=== PATIENT | male | born 1945 | race Caucasian/White ===

== ENCOUNTER 2021-03-05 05:20 | Inpatient (IN) | payer OTHER ==
[~2021-03-05] VITALS: Ht 185.4 cm; Wt 95.2 kg
--- NOTE | 2021-03-05 06:38 | NUR ---
PT ARRIVED A FIRECT ADMIT AROUND 0545HRS. STAT CONSULT TO UROLOGY CALLED. NURSE PRACTITIONER ADULT NOTIFIED. PAIN AND NAUSEA MEDS ORDERED. PT RATES PAIN OF 10/10; ORN PAIN MEDS PROVIDED. UROLOGIST WITH PT. WILL ENDORSE TO AM RN TO COMPLETE ADMISSION.
[2021-03-05 07:01] VITALS: BP 149/77
[2021-03-05 08:01] VITALS: BP 148/81
--- NOTE | 2021-03-05 10:17 | NUR ---
ASSUMED PT CARE THIS AM. ADMISSION COMPLETED CHARTED. PATIENT HAD A FRIEND CATHETER PLACED THIS AM BY PHYSICIAN, DRAINING RED. PATIENT REPORTS PAIN RELIEF WITH FRIEND CATHETER PLACED. PATIENT A&OX4 AND ABLE TO MAKE NEEDS KNOWN. PATIENT ON ROOM AIR. DIET ADVANCED PER PHYSICIAN. FALL PRECAUTIONS ARE IN PLACE, CALL LIGHT WITHIN REACH.
[2021-03-05 15:08] LABS: HEMATOCRIT 29.6 % (42.0-52.0); HEMOGLOBIN 10.1 gm/dL (14.0-18.0); MCV 91.2 fL (80.0-100.0); RBC 3.24 mil/uL (4.50-6.00); RDW 13.2 % (10.5-14.5); WBC 21.2 thou/uL (4.0-11.0)
[2021-03-05 15:49] LABS: ALBUMIN 2.8 g/dL (3.4-5.0); CALCIUM 7.4 mg/dL (8.5-10.1); CREATININE 9.7 mg/dL (0.7-1.3); POTASSIUM 5.4 mmol/L (3.5-5.1); TOTAL BILIRUBIN 0.2 mg/dL (0.2-1.0); TOTAL PROTEIN 6.3 g/dL (6.4-8.2)
[2021-03-05 15:53] LABS: MAGNESIUM 5.8 mg/dL (1.8-2.4)
[2021-03-05 16:25] VITALS: BP 101/55
[2021-03-05 21:00] VITALS: BP 99/57
--- NOTE | 2021-03-06 03:53 | NUR ---
Pt. rested quietly at intervals during the night when checked on during frequent rounds. CBI infusing without difficulty. He offers no c/o pain. Bed alarm is on.
[2021-03-06 05:05] LABS: ABSOLUTE NEUTROPHILS 14.3 thou/uL (1.4-8.2); BASOPHILS 0.2 % (0.0-2.0); EOSINOPHILS 0.1 % (0.0-3.0); HEMATOCRIT 22.4 % (42.0-52.0); MCH 31.6 pg (26.0-34.0); MCHC 34.8 g/dL (28.0-37.0); MCV 90.7 fL (80.0-100.0); MONOCYTES 11.1 % (1.0-8.0); PLATELET COUNT 165 thou/uL (150-400); POLYS 82.6 % (36.0-66.0); RBC 2.47 mil/uL (4.50-6.00); RDW 12.9 % (10.5-14.5); WBC 17.3 thou/uL (4.0-11.0)
[2021-03-06 05:16] VITALS: BP 100/52
[2021-03-06 05:31] LABS: CALCIUM 7.1 mg/dL (8.5-10.1); MAGNESIUM 4.4 mg/dL (1.8-2.4)
[2021-03-06 05:42] LABS: HEMOGLOBIN 7.8 gm/dL (14.0-18.0)
[2021-03-06 05:53] LABS: CREATININE 4.8 mg/dL (0.7-1.3); POTASSIUM 4.3 mmol/L (3.5-5.1)
[2021-03-06 07:09] LABS: GLYCOHEMOGLOBIN (HGB A1C) 6.3 % (4.8-5.6)
[2021-03-06 08:18] VITALS: BP 110/66
[2021-03-06 16:53] VITALS: BP 117/50
--- NOTE | 2021-03-06 18:31 | NUR ---
ASSUMED CARE OF PT AT 0700. CBI PT WAS CLOTTED OFF IN AM WITH INAPPROPRIATE OUTPUT FROM INPUT. IRRIGATED AND REMOVED MANY CLOTS AND CORRECTED FLUID IMBALANCE. THROUGHOUT THE REMAINDER OF DAY PT HAD NO COMPLAINTS AND VSS. PT DOES SEEM TO BE MORE DROWSY AND DISORIENTED DUE TO LACK OF SLEEP FROM THERAPY. KEPT CLOSE TRACK OF I+O AND PT WAS IRRIGATED AT LEAST EVERY 2HR. WILL PASS ON TO BOILING OFF WINDER RN
--- NOTE | 2021-03-06 19:01 | NUR ---
PT INTAKE AND OUTPUT 03/06/21. CLOSE MONITORING OF I/O WAS COMPLETED TODAY WITH FLUSHES Q2 OR MORE FREQUENT. CLOTS REMOVED AT EACH FLUSH. URINE IN FRIEND REMAINED A DARK UNDER[place] COLOR. 21,000 CBI WAS INPUT WITH HALF STILL REMAINING IN EACH BAG. REMOVED ~20,000 ML FROM FRIEND. MADE SURE PT REMAINED PATENT THROUGHOUT THE DAY.
[2021-03-06 19:35] VITALS: BP 113/48
[2021-03-07] VITALS (7 sets, daily range): BP systolic 121–146; BP diastolic 49–57
--- NOTE | 2021-03-07 05:03 | NUR ---
Assumed pt care at 1900. A/OX3-4,able to make needs known. Denies pain on assessment. VSS.CBI ongoing with red colored urine which has lessened through the night and almost pink,small clots noted upon flushing. NSR on telemetry. Fall precautions in place. Resting w/o distress,oxygen placed at HS for comfort @ 2L/NC.Will continue to monitor pt.
[2021-03-07 06:31] LABS: MCH 31.9 pg (26.0-34.0); MCV 91.2 fL (80.0-100.0); RBC 1.91 mil/uL (4.50-6.00); RDW 13.2 % (10.5-14.5); WBC 11.9 thou/uL (4.0-11.0)
[2021-03-07 06:42] LABS: HEMATOCRIT 17.4 % (42.0-52.0); HEMOGLOBIN 6.1 gm/dL (14.0-18.0)
[2021-03-07 06:59] LABS: ALBUMIN 2.4 g/dL (3.4-5.0); CALCIUM 7.7 mg/dL (8.5-10.1); PHOSPHORUS 3.3 mg/dL (2.5-4.9); POTASSIUM 3.6 mmol/L (3.5-5.1)
--- NOTE | 2021-03-07 11:47 | NUR ---
ASSUMED PT CARE THIS AM. PT A&OX4, ABLE TO MAKE NEEDS KNOWN. PATIENT REPORTS NO PAIN, NUMBNESS, OR TINGLING. IV REMAINS PATENT, MEDICATION INFUSING WITHOUT ISSUE. PATIENT TO GET A BLOOD TRANSFUSION THIS DAY. PATIENT HAS CONTINUOUS BLADDER IRRIGATION, IRRIGATING MANUALLY Q2H. NO ISSUES NOTED WITH BLADDER IRRIGATION AT 0800, BUT AT 1000, DIFFICULTY PULLING BACK. MORE IRRIGANT IS INFUSING THAN COMING OUT OF FRIEND BAG. UROLOGY CALLED TO MAKE AWARE OF THIS, AWAITING FRTHER INSTRUCTION. FALL PRECUATIONS ARE IN PLACE, CALL LIGHT WITHIN REACH.
--- NOTE | 2021-03-07 16:39 | NUR ---
CARE TEAM INDICATING THAT PT IS PROGRESSING TOWARD GOAL OF DISCHARGE. UROLOGY FOLLOWING. CM FOLLOWING REGARDING DC PLANNING.
[2021-03-07 16:43] LABS: HEMOGLOBIN 6.5 gm/dL (14.0-18.0)
[2021-03-07 16:46] LABS: HEMATOCRIT 19.5 % (42.0-52.0)
[2021-03-08 02:25] LABS: HEMATOCRIT 22.6 % (42.0-52.0); HEMOGLOBIN 7.7 gm/dL (14.0-18.0); MCH 30.6 pg (26.0-34.0); RBC 2.51 mil/uL (4.50-6.00); RDW 13.6 % (10.5-14.5); WBC 11.2 thou/uL (4.0-11.0)
[2021-03-08 04:13] VITALS: BP 139/64
--- NOTE | 2021-03-08 05:22 | NUR ---
PT RECEIVED 2ND BLOOD TRANSFUSION. AWAITING LAB RESULTS ON HGB. PT IS CONCERNED WITH WEAKNESS AND WANTING TO AMBULATE MORE. CBI RUNNING CONTINOUS WITH IRRIGATION ONCE PER HOUR FOR LARGE BLOOD CLOTS. IMPULSIVE WITH REMOVING NC. EASY TO REDIRECT.FALL PRECAUTIONS IN PLACE, CALL LIGHT IS WITHIN REACH.
[2021-03-08 08:19] VITALS: BP 128/61
[2021-03-08 15:51] VITALS: BP 122/59
--- NOTE | 2021-03-08 16:00 | NUR ---
CARE TEAM HAVE INDICATED THAT PT MAY BE MEDICALLY STABLE TO DC HOME OVER THE WEEKEND. CM SENT REFERRAL OVER TO [facility] FOR SERVICES UPON DC. PT TO DC HOME WITH [facility] ONCE MEDICALLY STABLE. FAX ORDERS TO . NO OTHER CM INTERVENTION ANTICIPATED.
--- NOTE | 2021-03-08 17:12 | NUR ---
ASSUMED CARE OF PT AT 0700. CBI PT IMPROVING TODAY - PATENT CATHETER DRAINAGE THROUGHOUT THE DAY AND IS LIGHTENING TO LIGHT PINK COLOR. DURING Q2 IRRIGATIONS, MUCH FEWER CLOTS WERE REMOVED. PER UROLOGY PLAN TO ATTEMPT TO WEEN OFF CBI OVER THE AFTERNOON AND EVENING. PT AMBULATED WELL IN THE HALLS WITH PT TODAY AND WAS IN THE CHAIR FOR A LARGE PORTION OF THE AFTERNOON. NO EXPRESSED PAIN OR CONCERNS. BLOOD SUGAR WELL CONTROLLED. WILL CONTINUE TO MONITOR.
[2021-03-08 20:40] VITALS: BP 138/93
[2021-03-08 23:40] VITALS: BP 146/64
--- NOTE | 2021-03-09 01:39 | NUR ---
ASSUMED CARE OF PT AT SHIFT CHANGE. PT IS AOX4 AND LETS NEEDS BE KNOWN. FALL PRECAUTION IN PLACE. PT DENIED PAIN, NAUSEA OR SOA. CBI CONTINUED AND TITRATED FOR LIGHT PINK OUTPUT. CBI SLOWED DOWN; NO CLOTS NOTED. IVF CONTINUED. PT HAD A SOFT BM THIS SHIFT. PT WAS ABLE TO GET COMFORTABLE AND SLEEP PART OF THE SHIFT. VSS AND NO S/S OF ACUTE DISTRESS. WILL CONTINUE TO MONIOTR FOR CHANGES.
[2021-03-09 08:25] VITALS: BP 144/63
[2021-03-09 12:16] VITALS: BP 125/59
[2021-03-09 16:43] VITALS: BP 130/73
--- NOTE | 2021-03-09 20:02 | NUR ---
Assumed pt care at 7am.Pt in and out of bed with sba.Assessment completed.vss. Pt urine per cbi was pink at slow rate. Manual irrigation as ordered and no blood clot noted. Dr Lambert her, order noted.Pt tolerated meds and diet. Pt ambulated in hallways today with his . Good endurance noted.No verbal c/o pt in bed resting at present. Will continue to monitor.
[2021-03-09 20:39] VITALS: BP 134/67
[2021-03-10 00:32] VITALS: BP 138/83
[2021-03-10 04:23] VITALS: BP 141/62
--- NOTE | 2021-03-10 05:37 | NUR ---
Assumed pt care at 1900. A/OX4,VSS.Denies pain on assessment. C/o feeling urge to pee;alonso manually flushed with no blood clots noted Q4hrs. CBI ongoing at a slow rate with pink/sometimes clear urine noted. IVF infusing w/o problems. Fall precautions in place. NSR on telemetry. Resting quietly at this time will continue to monitor pt.
[2021-03-10 07:04] LABS: HEMATOCRIT 23.8 % (42.0-52.0); HEMOGLOBIN 8.1 gm/dL (14.0-18.0); MCH 31.4 pg (26.0-34.0); MCHC 34.3 g/dL (28.0-37.0); MCV 91.7 fL (80.0-100.0); RBC 2.59 mil/uL (4.50-6.00); RDW 13.6 % (10.5-14.5); WBC 9.2 thou/uL (4.0-11.0)
[2021-03-10 07:18] LABS: CALCIUM 7.6 mg/dL (8.5-10.1); CREATININE 0.9 mg/dL (0.7-1.3); POTASSIUM 3.4 mmol/L (3.5-5.1)
[2021-03-10 07:42] VITALS: BP 147/78
[2021-03-10 12:12] VITALS: BP 134/74
[2021-03-10 14:40] VITALS: BP 134/74
[2021-03-10] MEDS ORDERED: FLOMAX0.4 MG PO (14:46)
--- NOTE | 2021-03-10 15:51 | NUR ---
Assumed pt care at 7am.Pt in bed resting and very anxious about going home today.Assessment completed.vss.Pt up in chair for all meals.Good appetite noted.Urology group rounded on pt and okay pt to dc home today.Dr Lambert notified. Dc order noted and rx faxed to pt pharmacy. Dc summary compile and reviewed with pt and , and alonso cath care given. Manual irrigation education given. Pt dc home with irrigation kit .AT 1550,pt dc home in [place] with .
== END 2021-03-10 17:22 | disposition home health service (06) | DRG 698 ==
LOC: 4W 05:20
PROVIDERS: Hospitalist; Internal Medicine; Nurse Practitioner; ADMIT Hospitalist; ATTEND Hospitalist
DX: T83.83XA Hemorrhage due to genitourinary prosthetic devices, implants and grafts, initial encounter (principal); N17.0 Acute kidney failure with tubular necrosis; D62 Acute posthemorrhagic anemia; N13.9 Obstructive and reflux uropathy, unspecified; R73.9 Hyperglycemia, unspecified; R53.81 Other malaise; R33.9 Retention of urine, unspecified; E55.9 Vitamin D deficiency, unspecified; K59.00 Constipation, unspecified; R31.0 Gross hematuria; D72.829 Elevated white blood cell count, unspecified; Z20.822 Contact with and (suspected) exposure to COVID-19; Z82.49 Family history of ischemic heart disease and other diseases of the circulatory system; Y84.6 Urinary catheterization as the cause of abnormal reaction of the patient, or of later complication, without mention of misadventure at the time of the procedure; Y92.89 Other specified places as the place of occurrence of the external cause
CPT/HCPCS: 10045